=== PATIENT | male | born 1995 ===

== ENCOUNTER 2016-11-16 22:56 | Emergency (ER) | payer SELFPAY ==
[2016-11-16] MEDS ORDERED: Sodium Chloride 0.9% 1,000 ML IV STA (23:56)
[2016-11-17 00:23] LABS: BASO # 0.02 K/mm3 (0.0-2.0); BASO % 0.3 % (0.0-3.0); EOS # 0.1 (0.0-0.7); EOS % 1.1 % (1.5-5.0); GRAN # 3.52 (1.4-6.5); HEMOGLOBIN 14.2 gm/dL (14.0-18.0); LYMPH % 31.2 % (22.0-35.0); MEAN CELL VOLUME 89.6 fL (80.0-105.0); MEAN CORPUSCULAR HEMOGLOBIN 30.9 pg (25.0-35.0); MEAN CORPUSCULAR HGB CONC 34.5 g/dl (31.0-37.0); MEAN PLATELET VOLUME 10.8 fl (7.0-11.0); MONO # 0.7 (0.1-0.6); MONO % 11.4 % (1.0-6.0); PLATELET COUNT 222 10^3/uL (120.0-450.0); RED CELL DISTRIBUTION WIDTH 12.2 % (11.5-14.5); URINE BILIRUBIN NEGATIVE (NEGATIVE); URINE BLOOD NEGATIVE (NEGATIVE); URINE GLUCOSE (UA) NEGATIVE (NEGATIVE); URINE LEUKOCYTE ESTERASE SMALL Leu/uL (NEGATIVE); URINE NITRATE NEGATIVE (NEGATIVE); URINE PROTEIN TRACE mg/dL (<30 mg/dL); WHITE BLOOD COUNT 6.3 10^3/ul (4.5-11.0)
[2016-11-17 00:31] LABS: ALB/GLOB RATIO 1.5 (1.1-1.8); ALBUMIN 4.8 g/dL (3.0-4.8); ALT/SGPT 23 U/L (7-56); AST/SGOT 20 U/L (15-59); BLOOD UREA NITROGEN 14 mg/dL (7-21); CALCIUM 9.2 mg/dL (8.4-10.5); GFR AFRICAN-AMERICAN > 60; GFR NON-AFRICAN AMERICAN > 60; LIPASE 19 U/L (23-300)
[2016-11-17 00:33] LABS: URINE APPEARANCE SL CLOUDY (CLEAR); URINE COLOR YELLOW (YELLOW)
[2016-11-17 00:34] LABS: URINE BACTERIA MOD (NEG); URINE EPITHELIAL CELLS 0 - 2 /hpf (0-5); URINE RBC 0 - 2 /hpf (0-2)
--- NOTE | 2016-11-17 00:44 | ED PDOC ---
Arrival/HPI - General Historian: Patient - History of Present Illness Time/Duration: > week (2 weeks) Symptom Course: Worsening Quality: Stabbing Severity Level: 6 <Jodie Jones - Last Filed: 11/17/16 02:14> <Eduard Rushing - Last Filed: 11/17/16 02:33> - General Chief Complaint: Back Pain Time Seen by Provider: 11/16/16 23:14 - History of Present Illness Narrative History of Present Illness (Text): 11/17/16 00:41 21yr old male presents today with 2 week history of right sided flank pain. pt states he has been having a mild sharp pain to the right side of the upper back for the past 2 weeks but today the pain became severe. pt c/o nausea in the mornings. c/o testicular pain. pt denies radiation of the back pain. no fever/ chills. no cp or sob. pt states he is sexually active with multiple partners without protection. denies penile discharge. no medications taken for pain at home. no other complaints. (Jodie Jones) Past Medical History - Provider Review Nursing Documentation Reviewed: Yes - Travel History Have you recently traveled outside [place] w/in the past 3 mons?: No - Infectious Disease Hx of Infectious Diseases: None - Tetanus Immunization Tetanus Immunization: Unknown - Psychiatric Hx Substance Use: Yes - Surgical History Other/Comment: Club Foot correction (Left Foot) <Jodie Jones - Last Filed: 11/17/16 02:14> Family/Social History - Physician Review Nursing Documentation Reviewed: Yes Family/Social History: Unknown Family HX Smoking Status: Former Smoker Hx Alcohol Use: Yes Frequency of alcohol use: Socially Hx Substance Use: Yes Substance used: Marijuana <Jodie Jones - Last Filed: 11/17/16 02:14> Allergies/Home Meds <Jodie Jones - Last Filed: 11/17/16 02:14> <Eduard Rushing - Last Filed: 11/17/16 02:33> Allergies/Adverse Reactions: Allergies No Known Allergies Allergy (Verified 11/16/16 23:14) Review of Systems - Review of Systems Constitutional: absent: Fatigue, Fevers Respiratory: absent: SOB, Cough Cardiovascular: absent: Chest Pain, Palpitations Gastrointestinal: Nausea. absent: Abdominal Pain, Constipation, Diarrhea, Vomiting Genitourinary Male: Dysuria, Frequency, Other (+ testicular pain). absent: Hematuria, Urinary Output Changes Musculoskeletal: Back Pain Skin: absent: Rash, Pruritis Neurological: absent: Headache, Dizziness <Jodie Jones - Last Filed: 11/17/16 02:14> Physical Exam Vital Signs Reviewed: Yes Temperature: Afebrile Blood Pressure: Normal Pulse: Regular Respiratory Rate: Normal Appearance: Positive for: Well-Appearing, Non-Toxic, Comfortable Pain Distress: None Mental Status: Positive for: Alert and Oriented X 3 - Systems Exam Head: Present: Atraumatic Mouth: Present: Moist Mucous Membranes Neck: Present: Normal Range of Motion Respiratory/Chest: Present: Clear to Auscultation, Good Air Exchange. No: Respiratory Distress, Accessory Muscle Use Cardiovascular: Present: Regular Rate and Rhythm, Normal S1, S2. No: Murmurs Abdomen: Present: Normal Bowel Sounds. No: Tenderness, Distention, Peritoneal Signs, Rebound, Guarding Back: Present: Normal Inspection, CVA Tenderness (+ right cva tenderness), Paraspinal Tenderness (right mid back tenderness). No: Midline Tenderness Upper Extremity: Present: Normal Inspection Lower Extremity: Present: Normal Inspection Neurological: Present: GCS=15 Skin: Present: Warm, Dry, Normal Color. No: Rashes Psychiatric: Present: Alert, Oriented x 3 <Jodie Jones - Last Filed: 11/17/16 02:14> - PA / WREATH MACHINE OPERATOR / Resident Statement MD/DO has reviewed & agrees with the documentation as recorded. <Eduard Rushing - Last Filed: 11/17/16 02:33> Disposition/Present on Arrival - Present on Arrival Any Indicators Present on Arrival: No History of DVT/PE: No History of Uncontrolled Diabetes: No Urinary Catheter: No History of Decub. Ulcer: No History Surgical Site Infection Following: None - Disposition Have Diagnosis and Disposition been Completed?: Yes Disposition Time: 02:10 Patient Plan: Discharge <Jodie Jones - Last Filed: 11/17/16 02:14> <Eduard Rushing - Last Filed: 11/17/16 02:33> - Disposition Diagnosis: Back pain, Pyelonephritis, Varicocele Disposition: HOME/ ROUTINE Patient Problems: Current Active Problems Problem Status Onset Back pain Acute Pyelonephritis Acute Varicocele Acute Condition: GOOD Discharge Instructions (ExitCare): Acute Pyelonephritis (ED), Varicocele (ED) Additional Instructions: motrin every 6 hours as needed for pain Kelfex; 3 times daily x 10 days increase fluids Follow up with the primary care physician within the next 2 days. Follow up with the urologist within the next 2 days. Follow up with the GI(stomach) specialist regarding liver calcification seen on CT. return immediately if symptoms worsen, persist or if new symptoms develop. Prescriptions: Cephalexin [Keflex] 500 mg PO TID #30 capsule Ibuprofen [Motrin] 600 mg PO Q6H PRN #20 tab PRN Reason: pain/fever reduction Referrals: Rosmery Mistry MD [Staff Provider] - Follow up with primary Ginger Alexandra MD [Staff Provider] - Follow up with primary Noel Bustillo DO [Staff Provider] - Follow up with primary Forms: WORK NOTE
[2016-11-17] MEDS ORDERED: cefTRIAXone (Rocephin) 250 mg Inj IM STA (01:53)
--- NOTE | 2016-11-17 02:12 | CT ---
PROCEDURE: CT CT scan of the abdomen and pelvis dated 11/17/2016. HISTORY: Right-sided flank pain COMPARISON: None. TECHNIQUE: Contiguous axial images of the abdomen and pelvis performed without oral or intravenous contrast. Additional 2 dimensional sagittal and coronal reformats provided. . Radiation dose: Total exam DLP = 238.63 mGy-cm. This CT exam was performed using one or more of the following dose reduction techniques: Automated exposure control, adjustment of the mA and/or kV according to patient size, and/or use of iterative reconstruction technique. FINDINGS: LOWER THORAX: Lung bases are clear. No infiltrate effusion or basilar pneumothorax. Heart size is within range of normal. No evidence of pericardial effusion. Tiny hiatal hernia. LIVER: Liver is enlarged measuring nearly 20 cm in CC dimension. . There is a rounded approximately 10.4 mm coarse calcification seen in the inferior aspect right lobe liver which is of uncertain etiology though could represent sequela of old trauma, or the post infectious/ inflammatory dystrophic type calcification. Clinical correlation recommended. GALLBLADDER AND BILE DUCTS: Gallbladder is incompletely distended. No evidence of intraluminal gallbladder calculated. PANCREAS: The pancreas is not well delineated due to the lack of intravenous contrast material. No obvious pancreatic mass or collection. SPLEEN: The spleen within the exhibits normal size and attenuation pattern without mass collection or calcification. ADRENALS: Adrenal lesions. KIDNEYS AND URETERS: Kidneys exhibit relatively symmetric size. No evidence nephrolithiasis or hydronephrosis. No obvious renal mass or collection. BLADDER: Urinary bladder is incompletely distended which may account for slight thick-walled appearance. . Muscular hypertrophy may contribute. Possibility of cystitis not excluded. Clinical correlation recommended. REPRODUCTIVE: Prostate gland and seminal vesicles unremarkable. APPENDIX: Pelvis felt to represent a normal partially air-filled appendix best seen on axial image number [id number]. No periappendiceal inflammatory changes. BOWEL: Evaluation of the bowel is limited due to the lack of oral contrast. The stomach is partially distended with liquid some food debris and air. Visualized loops of small bowel exhibit normal contour and caliber. No evidence of acute mechanical small bowel obstruction. Moderate amount of stool seen within the cecum ascending as well as to a lesser degree transverse colon consistent with mild fecal retention/ constipation. Note that the descending and sigmoid colon are but relatively collapsed and therefore difficult to evaluate. . The sigmoid appears redundant with multiple colonic diverticula. No definitive mural wall thickening or inflammatory changes seen in the mesentery at this time however possibility of a mild acute diverticulitis cannot be completely excluded. . Clinical correlation with physical exam and laboratory values. PERITONEUM: No evidence of free intraperitoneal air. No free or loculated fluid collections. LYMPH NODES: Unremarkable. No enlarged lymph nodes. VASCULATURE: Unremarkable. No aortic aneurysm. BONES: The visualized lower thoracic and lumbar spine the segments are intact without evidence of acute compression fractures nor retropulsed fragments. No significant degenerative spondylosis. OTHER FINDINGS: None. IMPRESSION: No evidence of nephrolithiasis or hydronephrosis. No evidence of acute appendicitis There are multiple colonic diverticula seen along the redundant sigmoid colon. No obvious inflammatory changes seen in the adjacent mesentery however the possibility of a mild acute diverticulitis cannot be completely excluded as colon is poorly evaluated due to incomplete distention and lack of oral contrast. Findings suggest mild constipation. Hepatomegaly. . There is a small 10.5 mm coarse calcification seen inferior aspect right lobe liver of uncertain etiology though may represent some old post traumatic or post infectious/inflammatory dystrophic type calcification.
--- NOTE | 2016-11-17 02:40 | US ---
EXAM: US Scrotum CLINICAL HISTORY: 21 years old, male; Pain; Scrotum pain; Additional info: Testicular pain, left, for 2 months. TECHNIQUE: Real-time ultrasound of the scrotum with color Doppler and image documentation. EXAM DATE/TIME: 11/16/2016 11:52 PM COMPARISON: No relevant prior studies available. FINDINGS: Right testicle: Within normal limits in appearance. Measures 3.8 x 2.0 x 2.6 cm. Flow seen in the right testicle on color and Doppler imaging, with no evidence of torsion. Right epididymis: Within normal limits in appearance. Head measures 9.4 x 6.2 x 6.7 mm. Left testicle: Within normal limits in appearance. Measures 3.7 x 1.8 x 2.4 cm. Flow seen in the left testicle on color and Doppler imaging, with no evidence of torsion. Left epididymis: Within normal limits in appearance. Head measures 12 x 12 x 7 mm. Hydrocoele: No evidence of significant hydroceles. Varicocele: Left-sided varicocele is noted. No evidence of significant right varicocele. IMPRESSION: No evidence of testicular torsion, epididymitis, or other acute abnormality. Left sided varicocele. See above for remaining findings.
--- NOTE | 2016-11-17 09:05 | RAD ---
HISTORY: right upper back pain COMPARISON: No prior. FINDINGS: LUNGS: No active pulmonary disease. PLEURA: No significant pleural effusion identified, no pneumothorax apparent. CARDIOVASCULAR: Normal. OSSEOUS STRUCTURES: No significant abnormalities. VISUALIZED UPPER ABDOMEN: Normal. OTHER FINDINGS: None. IMPRESSION: No active disease.
[2016-11-17 12:17] VITALS: BP 122/80; PULSE 72; RESP 17; TEMP 98.1; O2SAT 98
== END 2016-11-17 02:36 | disposition home or self-care (01) ==
LOC: ED 22:56
DX: N10 Acute pyelonephritis (principal); I86.1 Scrotal varices; M54.9 Dorsalgia, unspecified
CPT/HCPCS: 71010; 74176; 80053; 81001; 83690; 85025; 87086; 87491; 87591; 93975; 96361; 96372; 96374; 99284; J0696; J1885; J7040